=== PATIENT | female | born 1960 | race Caucasian/White ===

== ENCOUNTER → 2017-09-03 09:32 | Outpatient (CLI) | payer OTHER, SELFPAY ==
--- NOTE | 2017-09-03 09:33 | DI.RAD.S_ITS ---
PROCEDURE: XR LUMBAR SPINE 2-3V INDICATIONS: lumbago TECHNIQUE: 3 views of the lumbar spine were acquired. COMPARISON: [facility], CR, L-SPINE 2-3 VIEWS, 06/26/2013, 9:56. [facility], ALEJANDRINA, L/S-SPINE 2-3 VIEWS PAIN DEPT, 09/16/2013, 10:44. FINDINGS: Bones: 5 [id number] vertebrae are present. There is normal bony alignment. No vertebral body compression fractures. No suspicious bony lesions. Sclerosis is present around the narrowed L5-S1 disc. Soft tissues: Overlying bowel gas pattern is normal. Possible gallstone versus artifact right upper quadrant. IMPRESSION: 1. No acute bony abnormality. 2. Disc narrowing L5-S1 with reactive sclerosis of the adjoining endplates. Dictated by: Allen Soria M.D. on 09/03/2017 at 10:19 Approved by: Allen Soria M.D. on 09/03/2017 at 10:21
== END ==
PROVIDERS: Family Provider Family Medicine; PCP Family Medicine; Visit Provider Nurse Practitioner Family
DX: M54.5 Low back pain (principal); M51.37 Other intervertebral disc degeneration, lumbosacral region
CPT/HCPCS: 72100

== ENCOUNTER → 2017-10-18 07:53 | Outpatient (CLI) | payer OTHER, SELFPAY ==
--- NOTE | 2017-10-18 | DI.MG.S_ITS ---
BILATERAL DIGITAL SCREENING MAMMOGRAM 3D/2D WITH CAD: 10/18/2017 CLINICAL: Routine screening. Comparison is made to exams dated: 10/11/2016 mammogram, 08/31/2014 mammogram, and 05/26/2013 mammogram - [facility]. There are scattered fibroglandular elements in both breasts. Current study was also evaluated with a Computer Aided Detection (CAD) system. No significant masses, calcifications, or other findings are seen in either breast. There has been no significant interval change. IMPRESSION: NEGATIVE There is no mammographic evidence of malignancy. A 1 year screening mammogram is recommended. This exam was interpreted at Station ID: [id number]. NOTE: For mammograms, a report in lay terms will be sent to the patient. Approximately 15% of breast malignancies will not be visualized mammographically. In the management of a palpable breast mass, a negative mammogram must not discourage biopsy of a clinically suspicious lesion. Electronically Signed By: Anthony saucedo/eva:10/18/2017 12:42:15 letter sent: Normal Exam ACR BI-RADS Category 1: Negative [id number]
== END ==
PROVIDERS: Family Provider Family Medicine; PCP Family Medicine; Visit Provider Obstetrics & Gynecology
DX: Z12.31 Encounter for screening mammogram for malignant neoplasm of breast (principal)
CPT/HCPCS: 77063; 77067

== ENCOUNTER 2017-11-16 08:56 | Emergency (ER) | payer OTHER, SELFPAY ==
[2017-11-16] VITALS (7 sets, daily range): BP systolic 103–155; BP diastolic 62–95; PULSE 54–119; RESP 14–17; TEMP 36.8; O2SAT 94–98; BMI 33.9
--- NOTE | 2017-11-16 09:07 | DI.RAD.S_ITS ---
PROCEDURE: XR CHEST 1V INDICATIONS: chest pain TECHNIQUE: One view of the chest was acquired. COMPARISON: [facility], RG, XR CXR 1 VIEW, 09/15/2003, 10:52. [facility], RG, XR CXR 1 VIEW, 01/16/2005, 10:52. FINDINGS: Surgical changes and devices: None. Lungs and pleura: No pleural effusions or pneumothorax. Lungs are clear. Mediastinum: Mediastinal contours appear normal. Heart size is normal. Bones and chest wall: No suspicious bony lesions. Overlying soft tissues appear unremarkable. IMPRESSION: No acute cardiopulmonary disease. Dictated by: Gale Lawson M.D. on 11/16/2017 at 10:26 Approved by: Gale Lawson M.D. on 11/16/2017 at 10:27
[2017-11-16 09:22] LABS: Add Manual Diff / Slide Review NO; Basophils Percent Auto 1.2 % (0-2); Eosinophils Percent Auto 8.1 % (2-4); Hematocrit 37.4 % (36-46); Hemoglobin 12.6 g/dL (12.0-16.0); Mean Corpuscular HGB Conc 33.8 % (30-36); Mean Corpuscular Hemoglobin 30.4 PG (26-34); Mean Corpuscular Volume 89.9 fL (80-100); Monocytes Percent Auto 9.3 % (3-14); Neutrophils Absolute Auto 2800 /uL (3000-5900); Neutrophils Percent Auto 53.4 % (50-75); Platelet Count 213 X10^3/uL (150-400); Red Blood Cell Count 4.16 X10^6/uL (4.0-5.2); Red Cell Distribution Width 13.3 % (11.6-14.8); White Blood Cell Count 5.3 X10^3/uL (4.5-11.0)
[2017-11-16 09:30] LABS: INR 1.1 (0.9-1.3); Prothrombin Time 11.9 SECONDS (10.1-12.7)
[2017-11-16 09:33] LABS: PTT Partial Thromboplastin Tim 28 SECONDS (26.4-36.2)
[2017-11-16 09:43] LABS: Alanine Aminotransferase 57 IU/L (9-52); Albumin 4.5 g/dL (3.5-5.0); Albumin Globulin Ratio 1.9 (1.0-2.8); Alkaline Phosphatase 94 U/L (38-126); BUN Creatinine Ratio 21.4 (6-22); Bilirubin Total 0.8 mg/dL (0.2-1.3); Blood Urea Nitrogen 15 mg/dL (7-17); Calcium 9.8 mg/dL (8.4-10.2); Carbon Dioxide 30 mmol/L (22-32); Chloride 102 mmol/L (98-107); Creatine Kinase 57 U/L (30-135); Estimated Glomerular Filt Rate > 60.0 mL/min (>60); Globulin 2.4 g/dL (1.7-4.1); Glucose 103 mg/dL (70-100); Lipase 204 U/L (23-300); Sodium 142 mmol/L (137-145); Total Protein 6.9 g/dL (6.3-8.2)
[2017-11-16 09:59] LABS: HEMOLYSIS 67 (0-50); Potassium 4.6 mmol/L (3.4-5.1); Troponin I < 0.012 ng/mL (0.01-0.034)
[2017-11-16 10:00] LABS: Aspartate Aminotransferase 57 IU/L (14-36); Free T4, Direct Thyroxine 1.33 ng/dL (0.78-2.19)
[2017-11-16 10:04] LABS: D Dimer < 200 ng/mL (<230)
[2017-11-16 10:14] LABS: Thyroid Stimulating Hormone 0.58 uIU/mL (0.47-4.68)
[2017-11-16 12:14] LABS: Troponin I < 0.012 ng/mL (0.01-0.034)
--- NOTE | 2017-11-16 12:35 | ED.CHESTPAIN ---
HPI - Chest Pain General Chief Complaint: Chest Pain Stated Complaint: severe chest pain, has arrythimia, jaw hurts History of Present Illness HPI narrative: HPI 57-year-old obese female with a history of paroxysmal atrial fibrillation on metoprolol presents for evaluation after 20-30 second long brief period of substernal chest pain/tightness that radiated to his job and occurred while she was having bowel movement, pain resolved as quickly as it began in the patient has been asymptomatic since. Symptoms began 1 hour prior to arrival. Patient denies recent immobilization, leg trauma, estrogen use, surgery in the last four weeks, hemoptysis, or malignancy in the last 6 months. M/S/F/SocHx notable for: please see HPI; remainder reviewed with patient and in chart. ROS: Negative constitutional, eye, cardiovascular, pulmonary, GI, , MSK, skin, neurologic, psychiatric, endocrine unless noted in the HPI. Exam Gen: Pleasant, non-toxic appearing, resting comfortably. HEENT: NC, AT, PEERL, EOMI. Resp: Clear to auscultation bilaterally, normal work of breathing. Card: RRR with no M/R/G, no crackles in lung bases, no pedal edema, no JVD appreciated. GI: NT/ND Vascular: Both ankles, calves, and thighs of equal size, no calf tenderness to palpation bilaterally. MSK: No chest wall TTP. No visible deformities, strength and tone WNL. Skin: Normal color with no visible lesions. Neuro: AO x 3, no facial asymmetry, vision and hearing WNL. Psych: Mood and affect appropriate. Labs / Imaging (pertinent): WBC 5.3, Hb 12.6, Na 142, K 4.6, Mg 2.0, lipase 204, TSH 0.58, free T4 1.33. Troponin <0.012, troponin (repeat) <0.012 d-dimer <200 EKG: atrial fibrillation with ventricular rate of 103 bpm, nonspecific ST segment abnormalities, no LBBB. EKG (3 Lead cardiac monitor technician, 9:17 AM): SR at approximately 75 bpm, no ST segment elevations or depressions. Narrow QRS. CXR: No acute cardiopulmonary disease process. MDM Previous chart, nursing note, and vitals reviewed. A: 57-year-old obese female with a history of paroxysmal atrial fibrillation on metoprolol presents for evaluation after 20-30 second long brief period of substernal chest pain/tightness that radiated to his job and occurred while she was having bowel movement, pain resolved as quickly as it began in the patient has been asymptomatic since. DDx: ACS, unstable angina, pericarditis, myocarditis, dissection, PE, mediastinal air, pneumothorax, MSK, endocarditis, GI, arrhythmia. Evaluation: * ACS - doubt ACS given a non-ischemic EKG and negative serial troponins. * UA - unlikely given the atypical history and alternate diagnosis. HEART score 3 (Hx - 0, EKG - 1, age - 1, risk factors - 1, troponin - 0; 30 day MACE: less than or equal to 1.7%). * Pericarditis - consider pericarditis unlikely given the lack of MA segment depressions as well as the absence of diffuse ST-segment elevations, lack of reduction of pain when supine, and lack of a friction rub. * Myocarditis - unlikely given the negative troponin and an EKG without characteristic MA-segment or ST-segment changes. * Dissection - dissection is unlikely given symptoms, and lack of mediastinal widening, and low pretest probability with a negative d-dimer. * PE - low clinical suspicion, negative d-dimer. * Mediastinal Air - no evidence by CXR or auscultation. * Pneumothorax - no evidence by CXR or physical exam. * MSK - doubt given lack of reproducibility on exam. * Endocarditis - no identifiable risk factors, patient afebrile, no new murmurs appreciated on exam; doubt. * GI (Esophageal rupture, GERD) - esophageal rupture effectively excluded given the lack of mediastinal widening, non-toxic appearance, and lack of identifiable risk factors. While not definitively excluded, further evaluation of GERD is deferred to an outpatient setting. * Atrial fibrillation - patient re-demonstrates paroxysmal atrial fibrillation, discussion was had with the patient regarding anticoagulation versus deferring to repeat evaluation Saturday with PCP. Risks and benefits were reviewed, patient elected to pursue prompt outpatient follow-up her primary care physician to review possible anticoagulation needs. Impression: Chest Pain. (please reference below for remainder of encounter information) Related Data Previous Rx's Medication Instructions Recorded betamethasone dipropionate 1 sam TOPICAL QDAY #30 gm 09/12/16 atorvastatin [Lipitor] 40 mg PO HS #90 tab 03/21/17 escitalopram oxalate 40 mg PO QDAY #90 tab 03/21/17 lamotrigine [Lamictal] 0 PO QDAY #90 tab 03/21/17 levothyroxine 0.088 mg PO QAM #90 tab 03/21/17 metoprolol tartrate 50 mg PO BID #180 tab 03/21/17 cyclobenzaprine 5 mg tablet 5 mg PO BEDTIME #20 tab 09/03/17 estradiol [Estrace] 1 gm VAGINAL QDAY #30 gm 09/12/17 alprazolam 0.5 mg tablet 0.5 mg PO SEE INSTRUCTIONS PRN #30 11/08/17 tab fluticasone 0 INTRANASAL SEE INSTRUCTIONS #1 11/08/17 bot Allergies Allergy/AdvReac Type Severity Reaction Status Date / Time Sulfa (Sulfonamide Allergy Severe RASH, Unverified 09/03/17 08:52 Antibiotics) ANAPHYLAXIS buspirone Allergy Intermediate HIVES Unverified 09/03/17 08:52 cephalexin Allergy Intermediate HIVES Unverified 09/03/17 08:52 fluoxetine Allergy Intermediate HIVES Unverified 09/03/17 08:52 ketorolac Allergy Intermediate HIVES Unverified 09/03/17 08:52 levofloxacin Allergy Intermediate EYE Unverified 09/03/17 08:52 SWELLING metronidazole Allergy Intermediate HIVES Unverified 09/03/17 08:52 nitrofurantoin Allergy Intermediate HIVES Unverified 09/03/17 08:52 Quinolones Allergy Intermediate HIVES Unverified 09/03/17 08:52 sertraline Allergy Intermediate HIVES Unverified 09/03/17 08:52 tobramycin Allergy Intermediate HIVES Unverified 09/03/17 08:52 adhesive Allergy Mild RASH Unverified 09/03/17 08:52 ezetimibe Allergy Unknown Unverified 09/03/17 08:52 gentamicin [Gentamicin] Allergy Unknown Unverified 09/03/17 08:52 Penicillins Allergy Unknown Unverified 09/03/17 08:52 simvastatin Allergy Unknown Unverified 09/03/17 08:52 sulfamethoxazole Allergy Unknown Unverified 09/03/17 08:52 [From Bactrim] trimethoprim [From Bactrim] Allergy Unknown Unverified 09/03/17 08:52 epinephrine AdvReac Mild HEART Unverified 09/03/17 08:52 [facility] Surgical History Status post appendectomy Family History Father Heart disease Hypertension Mother Hypertension High cholesterol Social History Smoking Status: Never smoker Exam Initial Vital Signs Initial Vital Signs: Vital Signs Temperature 98.3 F 11/16/17 09:19 Pulse Rate 119 H 11/16/17 09:19 Respiratory Rate 17 11/16/17 09:19 Blood Pressure 155/95 H 11/16/17 09:19 Pulse Oximetry 96 11/16/17 09:19 Course Orders Ordered: ED Orders 11/16/17 09:07 XR chest 1V Stat EKG-12 Lead Stat 11/16/17 09:10 Complete Blood Count AUTO DIFF Stat Comprehensive Metabolic Panel Stat D Dimer Stat Free T4 Free Thyroxine Stat Lipase Stat Magnesium Stat Partial Thromboplastin Time Stat Prothrombin Time INR Stat Thyroid Stimulating Hormone Stat Troponin & CK Cardiac Panel Stat 11/16/17 11:25 Troponin I Stat Vital Signs - 8 hr 11/16/17 09:19 11/16/17 09:30 11/16/17 10:00 Temperature 98.3 F Pulse Rate 119 H 62 55 L Respiratory Rate 17 16 14 Blood Pressure 155/95 H Blood Pressure [Right Arm] 121/72 H 121/75 H Pulse Oximetry 96 98 94 11/16/17 10:38 11/16/17 11:13 11/16/17 12:04 Temperature Pulse Rate 54 L 59 L Respiratory Rate 17 16 Blood Pressure Blood Pressure [Right Arm] 108/68 103/62 113/66 Pulse Oximetry 95 95 MDM - Chest Pain Lab Data Result diagrams: 11/16/17 09:10 11/16/17 09:10 Lab Results 11/16/17 11/16/17 11/16/17 Range/Units 09:10 09:10 09:10 WBC 5.3 (4.5-11.0) X10^3/uL RBC 4.16 (4.0-5.2) X10^6/uL Hgb 12.6 (12.0-16.0) g/dL Hct 37.4 (36-46) % MCV 89.9 (80-100) fL MCH 30.4 (26-34) PG MCHC 33.8 (30-36) % RDW 13.3 (11.6-14.8) % Plt Count 213 (150-400) X10^3/uL Neut % (Auto) 53.4 (50-75) % Lymph % (Auto) 28.0 (25-40) % Murray % (Auto) 9.3 (3-14) % Eos % (Auto) 8.1 H (2-4) % Baso % (Auto) 1.2 (0-2) % Neut # (Auto) 2800 L (1592-5579) /uL PT 11.9 (10.1-12.7) SECONDS INR 1.1 (0.9-1.3) APTT 28 (26.4-36.2) SECONDS D-Dimer (<230) ng/mL Sodium 142 (137-145) mmol/L Potassium 4.6 (3.4-5.1) mmol/L Chloride 102 (98-107) mmol/L Carbon Dioxide 30 (22-32) mmol/L BUN 15 (7-17) mg/dL Creatinine 0.70 (0.52-1.04) mg/dL Estimated GFR > 60.0 (>60) mL/min BUN/Creatinine Ratio 21.4 (6-22) Glucose 103 H (70-100) mg/dL Calcium 9.8 (8.4-10.2) mg/dL Magnesium (1.6-2.3) mg/dL Total Bilirubin 0.8 (0.2-1.3) mg/dL AST 57 H (14-36) IU/L ALT 57 H (9-52) IU/L Alkaline Phosphatase 94 (38-126) U/L Total Creatine Kinase 57 (30-135) U/L Troponin I < 0.012 (0.01-0.034) ng/mL Total Protein 6.9 (6.3-8.2) g/dL Albumin 4.5 (3.5-5.0) g/dL Globulin 2.4 (1.7-4.1) g/dL Albumin/Globulin Ratio 1.9 (1.0-2.8) Lipase 204 (23-300) U/L TSH (0.47-4.68) uIU/mL Free T4 (0.78-2.19) ng/dL 11/16/17 11/16/17 11/16/17 Range/Units 09:10 09:10 09:10 WBC (4.5-11.0) X10^3/uL RBC (4.0-5.2) X10^6/uL Hgb (12.0-16.0) g/dL Hct (36-46) % MCV (80-100) fL MCH (26-34) PG MCHC (30-36) % RDW (11.6-14.8) % Plt Count (150-400) X10^3/uL Neut % (Auto) (50-75) % Lymph % (Auto) (25-40) % Murray % (Auto) (3-14) % Eos % (Auto) (2-4) % Baso % (Auto) (0-2) % Neut # (Auto) (3726-9882) /uL PT (10.1-12.7) SECONDS INR (0.9-1.3) APTT (26.4-36.2) SECONDS D-Dimer < 200 (<230) ng/mL Sodium (137-145) mmol/L Potassium (3.4-5.1) mmol/L Chloride (98-107) mmol/L Carbon Dioxide (22-32) mmol/L BUN (7-17) mg/dL Creatinine (0.52-1.04) mg/dL Estimated GFR (>60) mL/min BUN/Creatinine Ratio (6-22) Glucose (70-100) mg/dL Calcium (8.4-10.2) mg/dL Magnesium 2.0 (1.6-2.3) mg/dL Total Bilirubin (0.2-1.3) mg/dL AST (14-36) IU/L ALT (9-52) IU/L Alkaline Phosphatase (38-126) U/L Total Creatine Kinase (30-135) U/L Troponin I (0.01-0.034) ng/mL Total Protein (6.3-8.2) g/dL Albumin (3.5-5.0) g/dL Globulin (1.7-4.1) g/dL Albumin/Globulin Ratio (1.0-2.8) Lipase (23-300) U/L TSH 0.58 (0.47-4.68) uIU/mL Free T4 1.33 (0.78-2.19) ng/dL 11/16/17 Range/Units 11:25 WBC (4.5-11.0) X10^3/uL RBC (4.0-5.2) X10^6/uL Hgb (12.0-16.0) g/dL Hct (36-46) % MCV (80-100) fL MCH (26-34) PG MCHC (30-36) % RDW (11.6-14.8) % Plt Count (150-400) X10^3/uL Neut % (Auto) (50-75) % Lymph % (Auto) (25-40) % Murray % (Auto) (3-14) % Eos % (Auto) (2-4) % Baso % (Auto) (0-2) % Neut # (Auto) (6632-3742) /uL PT (10.1-12.7) SECONDS INR (0.9-1.3) APTT (26.4-36.2) SECONDS D-Dimer (<230) ng/mL Sodium (137-145) mmol/L Potassium (3.4-5.1) mmol/L Chloride (98-107) mmol/L Carbon Dioxide (22-32) mmol/L BUN (7-17) mg/dL Creatinine (0.52-1.04) mg/dL Estimated GFR (>60) mL/min BUN/Creatinine Ratio (6-22) Glucose (70-100) mg/dL Calcium (8.4-10.2) mg/dL Magnesium (1.6-2.3) mg/dL Total Bilirubin (0.2-1.3) mg/dL AST (14-36) IU/L ALT (9-52) IU/L Alkaline Phosphatase (38-126) U/L Total Creatine Kinase (30-135) U/L Troponin I < 0.012 (0.01-0.034) ng/mL Total Protein (6.3-8.2) g/dL Albumin (3.5-5.0) g/dL Globulin (1.7-4.1) g/dL Albumin/Globulin Ratio (1.0-2.8) Lipase (23-300) U/L TSH (0.47-4.68) uIU/mL Free T4 (0.78-2.19) ng/dL Discharge Plan Departure Prescriptions: No Action betamethasone dipropionate 0.05 % cream 1 sam Topical QDAY Qty: 30 RF: 0 atorvastatin [Lipitor] 40 MG tablet 40 mg PO HS Qty: 90 RF: 3 lamotrigine [Lamictal] 200 MG tablet PO QDAY Qty: 90 RF: 3 levothyroxine 88 MCG tablet 0.088 mg PO QAM Qty: 90 RF: 3 metoprolol tartrate 50 MG tablet 50 mg PO BID Qty: 180 RF: 3 escitalopram oxalate 20 MG tablet 40 mg PO QDAY Qty: 90 RF: 3 estradiol [Estrace] 0.01 % (0.1 mg/gram) cream 1 gm Vaginal QDAY Qty: 30 RF: 3 fluticasone 50 mcg/actuation spray,suspension Intranasal SEE INSTRUCTIONS Qty: 1 RF: 4 alprazolam 0.5 mg tablet 0.5 mg PO SEE INSTRUCTIONS PRN (Reason: anxiety) Qty: 30 RF: 0 cyclobenzaprine 5 mg tablet 5 mg PO BEDTIME Qty: 20 RF: 0
== END 2017-11-16 12:47 | disposition home or self-care (01) ==
PROVIDERS: Emergency Provider Emergency Medicine; PCP Family Medicine
DX: R07.9 Chest pain, unspecified (principal)
CPT/HCPCS: 36415; 36591; 71045; 80053; 82550; 82553; 83690; 83735; 84439; 84443; 84484; 85025; 85379; 85610; 85730; 93005; 93010; 99283; 99285

== ENCOUNTER → 2017-11-26 13:29 | Outpatient (CLI) | payer OTHER, SELFPAY ==
--- NOTE | 2017-12-18 08:18 | P.HOLT.S_ITS ---
[employer] Report Referral & Results Date Patient Seen: 11/26/17 Requesting provider: Angel Love Indication: AFib Duration of monitoring (days): 12 Diary information: Patient had no diary entries entered There were 119 patient triggered events including episodes of atrial fibrillation sinus rhythm PACs and PVCs Data: Patient's minimum heart rate was 44 beats per minute at 05:56 on 2017 Maximum sinus heart rate was 119 beats per minute at 01:08 on 12/03/2017 Maximum overall heart rate was 170 beats per minute at 20:40 on 12/02/2017 during an episode of atrial fibrillation Less than 1% of identified beats or either ventricular or supraventricular ectopic in origin Predominant underlying rhythm was sinus rhythm. However 18% of the time patient was in atrial fibrillation with heart rates ranging from 64-178 with the longest episode lasting 22 hr 36 min, with an average rate of 98 beats per minute during this time Impression: Patient with episodic paroxysmal atrial fibrillation as above including an episode that lasted in excess of 22 hr Clinical correlation suggested
== END ==
PROVIDERS: PCP Family Medicine; Visit Provider Family Medicine
DX: R07.9 Chest pain, unspecified (principal); I48.0 Paroxysmal atrial fibrillation
CPT/HCPCS: 0296T; 0298T

== ENCOUNTER → 2017-11-29 08:14 | Outpatient (CLI) | payer OTHER, SELFPAY ==
--- NOTE | 2017-11-29 08:16 | DI.ECHO.S_ITS ---
[facility]---------+ [facility] +---------+ : : [address] : : : : [id number] : : : : Phone: [phone] Echocardiogram Report + + :Name: ARIA ANDRES Study Date: 11/29/2017 Height: 66 in : :[facility] Exam Location: [facility] Weight: 205 lb : : Gender: Female BSA: 2.0 m2 : :: 1960 Age: 57 yrs BP: 110/80 mmHg: :Reason For Study: Chest pain/ AFib : :Ordering Physician: Dr. Ortiz : :Ivan Performed By: Christa Page : :Referring: JOHANNA TORRES : + + Interpretation Summary The ejection fraction is estimated to be 60-65%. There is mild mitral regurgitation. There is trace tricuspid regurgitation. The right ventricular systolic pressure is estimated at 27 mmHg assuming a right atrial pressure of 3 mm Hg. Procedure: A two-dimensional transthoracic echocardiogram with color flow and Doppler was performed. The study quality was technically adequate. Prior with images only from 09/24/2003. The patient was in normal sinus rhythm during the exam. Left Ventricle: The left ventricle is normal in size, wall thickness, and systolic function without any focal wall motion abnormalities. The ejection fraction is estimated to be 60-65%. Assessment of diastolic parameters indicates normal left ventricular diastolic function and normal filling pressures. Right Ventricle: The right ventricle is normal in size and function. Atria: The left atrium is mildly dilated. The right atrium is borderline dilated. There is no Doppler evidence for an interatrial shunt. Mitral Valve: The mitral valve is normal in structure and function. There is mild mitral regurgitation. Aortic Valve: The aortic valve is trileaflet. The aortic valve opens well. No aortic regurgitation is present. Tricuspid Valve: The tricuspid valve is normal in structure and function. There is trace tricuspid regurgitation. The right ventricular systolic pressure is estimated at 27 mmHg assuming a right atrial pressure of 3 mm Hg. Pulmonic Valve: The pulmonic valve is not well seen, but is grossly normal. There is trace pulmonic regurgitation. Great Vessels: The aortic root is normal size. The ascending aorta is normal in size. The aortic arch is normal in size. The pulmonary artery is not well visualized, but is probably normal size. The IVC is of normal diameter and collapses greater than 50% with a sniff. This suggests a low right atrial pressure of 3 mm Hg. Pericardium/ Pleura There is no pericardial effusion. There is no pleural effusion. MMode/2D Measurements & Calculations LVIDd: 5.2 cm LVOT diam: 1.9 cm LVIDs: 3.6 cm Ao root diam: 2.6 cm FS: 31.8 % asc Aorta Diam: 2.8 cm EPSS: 0.45 cm Ao Arch Diam (Prox Trans): 2.5 cm IVSd: 0.76 cm LVPWd: 0.84 cm LV dominguez. diameter/BSA (cm/m^2): 2.6 LV sys. diameter/BSA (cm/m^2): 1.8 LA A2 area: 25.7 cm2 RA long axis: 5.2 cm LA A4 area: 24.1 cm2 RA area: 19.7 cm2 LA length (vol): 6.4 cm RA vol: 64.2 ml LA vol: 82.1 ml RA : 31.8 ml/m2 LA vol index: 40.6 ml/m2 IVC diam: 1.7 cm RVD1 (basal): 3.8 cm TAPSE: 2.0 cm Doppler Measurements & Calculations Ao V2 max: 132.3 cm/sec LVOT Max Shane: 106.8 cm/sec Ao V2 mean: 91.0 cm/sec LV V1 max P.6 mmHg Ao max P.0 mmHg LV V1 VTI: 23.4 cm Ao mean P.7 mmHg NELLIE(I,D): 2.3 cm2 Ao V2 VTI: 29.8 cm NELLIE(V,D): 2.4 cm2 sev ratio: 0.79 NELLIE indexed to BSA (cm^2/m^2): 1.1 MV E max shane: 74.1 cm/sec TR max shane: 247.0 cm/sec MV A max shane: 34.0 cm/sec TR max P.4 mmHg MV E/A: 2.2 PA V2 max: 76.0 cm/sec Med Peak E' Shane: 6.8 cm/sec PA V2 mean: 54.5 cm/sec E/E' med: 10.9 PA mean P.3 mmHg Lat Peak E' Shane: 8.2 cm/sec PA Accel Time: 0.17 sec E/E' lat: 9.1 E/e' average: 10.0 MV dec time: 0.23 sec MV P1/2t: 69.4 msec MV P1/2t max shane: 73.7 cm/sec MVA(P1/2t): 3.2 cm2 Reading Physician:04:12 PM
== END ==
PROVIDERS: PCP Family Medicine; Visit Provider Family Medicine
DX: I34.0 Nonrheumatic mitral (valve) insufficiency (principal); I48.91 Unspecified atrial fibrillation; R07.9 Chest pain, unspecified
CPT/HCPCS: 93306

== ENCOUNTER 2018-11-07 19:42 | Emergency (ER) | payer OTHER, SELFPAY ==
[2018-11-07] VITALS (15 sets, daily range): BP systolic 111–139; BP diastolic 62–86; PULSE 79–141; RESP 12–18; TEMP 37.5; O2SAT 95–99
--- NOTE | 2018-11-07 19:48 | ED.ARRPALP ---
HPI - Arrhythmia/Palpitations General Chief Complaint: Arrhythmia/Palpitations Stated Complaint: Rapid A-Fib Time Seen by Provider: 11/07/18 19:43 Source: patient and family Mode of arrival: ambulatory Limitations: no limitations History of Present Illness HPI narrative: 58-year-old female nonsmoker with history of paroxysmal atrial fibrillation on Pradaxa presents with a chief complaint of palpitations, rapid heart rate and left anterior chest pain with radiation to her left arm over the past day or 2. 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 She her home monitor noted to be in the 130s 140s but she did not believe its accuracy. About 1-2 weeks ago the patient had slipped and fallen on her left hip and it causes her pain with active range of motion. She denies any numbness, tingling or weakness. She denies any knee or ankle pain. She went to the walk-in clinic for evaluation of this left hip pain but during their evaluation they found her to be in a rapid atrial fibrillation at which point she was sent here MD complaint: rapid heart beat, palpitations and atrial fibrillation Duration: constant Severity: moderate Arrhythmia history: atrial fibrillation Associated symptoms: chest pain and shortness of breath Related Data Previous Rx's Medication Instructions Recorded betamethasone dipropionate 1 sam TOPICAL QDAY #30 gm 09/12/16 cyclobenzaprine 5 mg tablet 5 mg PO BEDTIME #20 tab 09/03/17 dabigatran etexilate 150 mg capsule 150 mg PO BID #60 cap 12/30/17 escitalopram 20 mg tablet 40 mg PO QDAY #180 tab 01/22/18 levothyroxine 0.088 mg PO QAM #90 tab 01/22/18 metoprolol tartrate 50 mg tablet 25 mg PO BID #90 tab 03/13/18 atorvastatin [Lipitor] 40 mg PO HS #90 tab 07/10/18 fluticasone propionate 0 INTRANASAL SEE INSTRUCTIONS #1 07/10/18 bot lamotrigine [Lamictal] 0 PO QDAY #90 tab 07/10/18 estradiol [Estrace] 1 gm VAGINAL QDAY #30 gm 09/22/18 alprazolam 0.5 mg tablet 0.5 mg PO SEE INSTRUCTIONS PRN #30 10/09/18 tab Allergies Allergy/AdvReac Type Severity Reaction Status Date / Time Sulfa (Sulfonamide Allergy Severe RASH, Verified 11/07/18 20:00 Antibiotics) ANAPHYLAXIS buspirone Allergy Intermediate HIVES Verified 11/07/18 20:00 cephalexin Allergy Intermediate HIVES Verified 11/07/18 20:00 fluoxetine Allergy Intermediate HIVES Verified 11/07/18 20:00 ketorolac Allergy Intermediate HIVES Verified 11/07/18 20:00 levofloxacin Allergy Intermediate EYE Verified 11/07/18 20:00 SWELLING metronidazole Allergy Intermediate HIVES Verified 11/07/18 20:00 nitrofurantoin Allergy Intermediate HIVES Verified 11/07/18 20:00 Quinolones Allergy Intermediate HIVES Verified 11/07/18 20:00 sertraline Allergy Intermediate HIVES Verified 11/07/18 20:00 tobramycin Allergy Intermediate HIVES Verified 11/07/18 20:00 adhesive Allergy Mild RASH Verified 11/07/18 20:00 ezetimibe Allergy Unknown Verified 11/07/18 20:00 gentamicin [Gentamicin] Allergy Unknown Verified 11/07/18 20:00 Penicillins Allergy Unknown Verified 11/07/18 20:00 simvastatin Allergy Unknown Verified 11/07/18 20:00 sulfamethoxazole Allergy Unknown Verified 11/07/18 20:00 [From Bactrim] trimethoprim [From Bactrim] Allergy Unknown Verified 11/07/18 20:00 epinephrine AdvReac Mild HEART Verified 11/07/18 20:00 RACING Review of Systems Constitutional Denies chills, Denies fever(s), Denies lethargy and Denies weakness Eyes Denies change in vision, Denies eye discharge, Denies irritation and Denies loss of vision ENT Ears, Nose, Mouth, and Throat: Denies change in voice, Denies neck pain and Denies sore throat Cardiovascular Reports chest pain, Reports irregular heart rhythm, Denies lightheadedness, Reports palpitations, Reports dyspnea, Denies dyspnea on exertion and Denies orthopnea Respiratory Denies cough, Reports dyspnea, Denies dyspnea on exertion and Denies wheezing Gastrointestinal Gastrointestinal: Denies abdominal pain, Denies change in bowel habits, Denies diarrhea, Denies nausea and Denies vomiting Genitourinary Denies hematuria, Denies flank pain, Denies urinary incontinence and Denies urinary urgency Musculoskeletal Reports limited range of motion and Denies neck pain Integumentary/Breasts Denies pruritus, Denies erythema, Denies rash and Denies wounds Neurologic Denies confusion, Denies loss of vision and Denies weakness Psychiatric Denies anxiety, Denies confusion, Denies depression, Denies homicidal ideation and Denies suicidal ideation Endocrine Reports palpitations Hematologic/Lymphatic Denies easy bruising Allergic/Immunologic Denies wheezing [facility] Medical History Asthma (Chronic) Cardiac arrhythmia (Chronic) Chronic back pain (Chronic) Depression (Chronic) Hayfever (Chronic) Hypothyroidism (Chronic) Chicken pox (Resolved) Mumps (Resolved) Surgical History Anesthesia (Resolved) History of gynecologic surgery (Resolved 07/2014) Status post appendectomy (Resolved ~1999) Family History Father Heart disease Hypertension Congestive heart failure Mother Hypertension High cholesterol Son Chronic mental illness Social History marital status: Smoking Status: Never smoker alcohol intake: never substance use type: does not use Family History Father Heart disease Hypertension Congestive heart failure Mother Hypertension High cholesterol Son Chronic mental illness Social History marital status: Smoking Status: Never smoker alcohol intake: never substance use type: does not use Exam Narrative Exam Narrative: GENERAL: 58-year-old female appears stated age, in obvious distress, obviously anxious HEAD: Atraumatic. Normocephalic. No temporal or scalp tenderness. EYES: Pupils equal round and reactive. Extraocular motions intact. No scleral icterus. No injection or drainage. ENT: Nose without bleeding, purulent drainage or septal hematoma. Throat without erythema, tonsillar hypertrophy or exudate. Uvula midline. Airway patent. NECK: Trachea midline. No JVD or lymphadenopathy. Supple, nontender, no meningeal signs. CARDIOVASCULAR: Tachycardic and irregular, no murmurs clicks rubs or gallops RESPIRATORY: Clear to auscultation. Breath sounds equal bilaterally. No wheezes, rales, or rhonchi. GASTROINTESTINAL: Abdomen soft, non-tender, nondistended. No hepato-splenomegaly, or palpable masses. No guarding. EXTREMITIES: No pain on palpation of left hip. Range of motion actively creates pain along the anterior aspect of the hip. No pain with passive range of motion or axial loading BACK: Nontender without deformity or crepitance. No flank tenderness. NEURO: AOx3. SKIN: No rash or erythema. Initial Vital Signs Initial Vital Signs: Vital Signs Temperature 99.5 F 11/07/18 19:48 Pulse Rate 141 H 11/07/18 19:48 Respiratory Rate 14 11/07/18 19:48 Blood Pressure 139/71 11/07/18 19:48 Pulse Oximetry 95 11/07/18 19:48 Procedures Cardioversion Consent Signed: Yes Indication: rapid atrial fib / atrial flutter Stability: Stable Number of attempts (shocks): 1 Joules used: 50 Cardiac rhythm post-cardioversion: NSR Procedural Sedation Patient Age: Patient is 5yrs or older Consent signed: Yes Time out performed: Yes Indication: cardioversion ASA Class: II Mallampati Airway Classification: Class II Preparation: cardiac cath lab technologist applied, pulse oximeter, capnometry used, supplemental O2 applied, suction/airway equipment at bedside and IV secured IV Propofol dose (mg): 60 Intraservice time/total sedation time (min): 10 ED Sedation Level: Moderate (Concious) Patient Tolerated Procedure: Well Complications: none Course Orders Ordered: ED Orders 11/07/18 19:48 XR chest 1V Stat EKG-12 Lead Stat 11/07/18 19:52 Basic Metabolic Panel Stat Complete Blood Count AUTO DIFF Stat Magnesium Stat Thyroid Stimulating Hormone Stat Troponin & CK Cardiac Panel Stat 11/07/18 20:01 D Dimer Stat 11/07/18 20:35 XR hip w pel if done LT 2V Stat Discontinued Medications Diltiazem HCl (Cardizem) 10 mg IV NOW ONE Stop: 11/07/18 19:48 Last Admin: 11/07/18 20:16 Dose: 10 mg Sodium Chloride (Normal Saline 0.9%) 1,000 mls @ 150 mls/hr IV CONT RYLAN Last Infusion: 11/07/18 23:25 Dose: 0 mls/hr Admin: 11/07/18 20:17 Dose: 150 mls/hr Propofol (Diprivan) 60 mg IV NOW ONE Stop: 11/07/18 23:00 Last Admin: 11/07/18 22:22 Dose: 60 mg Vital Signs - 8 hr 11/07/18 20:16 11/07/18 20:30 11/07/18 20:45 Pulse Rate 137 H 133 H 124 H Respiratory Rate 18 Blood Pressure 128/74 Blood Pressure [Left Arm] Pulse Oximetry 95 11/07/18 21:00 11/07/18 21:45 11/07/18 22:08 Pulse Rate 123 H 116 H 119 H Respiratory Rate 16 18 Blood Pressure Blood Pressure [Left Arm] 135/86 135/73 Pulse Oximetry 95 96 99 11/07/18 22:25 11/07/18 22:30 11/07/18 22:35 Pulse Rate 85 83 84 Respiratory Rate 12 12 14 Blood Pressure Blood Pressure [Left Arm] 111/62 116/68 116/64 Pulse Oximetry 99 99 97 11/07/18 22:40 11/07/18 22:45 11/07/18 22:50 Pulse Rate 82 79 82 Respiratory Rate 12 14 16 Blood Pressure Blood Pressure [Left Arm] 116/70 118/63 115/66 Pulse Oximetry 98 97 98 11/07/18 22:55 11/07/18 23:30 Pulse Rate 79 83 Respiratory Rate 17 18 Blood Pressure 118/68 Blood Pressure [Left Arm] 116/68 Pulse Oximetry 97 97 MDM - Arrhythmia/Palpitations Lab Data Result diagrams: 11/07/18 19:52 11/07/18 19:52 Lab Results 11/07/18 11/07/18 11/07/18 Range/Units 19:52 19:52 19:52 WBC 5.7 (4.5-11.0) X10^3/uL RBC 3.96 L (4.0-5.2) X10^6/uL Hgb 12.1 (12.0-16.0) g/dL Hct 35.1 L (36-46) % MCV 88.5 (80-100) fL MCH 30.5 (26-34) PG MCHC 34.5 (30-36) % RDW 13.9 (11.6-14.8) % Plt Count 272 (150-400) X10^3/uL Neut % (Auto) 68.9 (50-75) % Lymph % (Auto) 14.3 L (25-40) % [place] % (Auto) 9.8 (3-14) % Eos % (Auto) 5.7 H (2-4) % Baso % (Auto) 1.3 (0-2) % Neut # (Auto) 3900 (3454-7941) /uL Lymph # (Auto) 800 L (1414-6777) /uL [place] # (Auto) 600 (0-900) /uL Eos # (Auto) 300 (0-450) /uL Baso # (Auto) 100 (0-100) /uL D-Dimer (<230) ng/mL Sodium 140 (137-145) mmol/L Potassium 3.8 (3.4-5.1) mmol/L Chloride 100 (98-107) mmol/L Carbon Dioxide 29 (22-32) mmol/L BUN 17 (7-17) mg/dL Creatinine 0.70 (0.52-1.04) mg/dL Estimated GFR > 60.0 (>60) mL/min BUN/Creatinine Ratio 24.3 H (6-22) Glucose 132 H (70-100) mg/dL Calcium 9.6 (8.4-10.2) mg/dL Magnesium 2.1 (1.6-2.3) mg/dL Total Creatine Kinase 36 (30-135) U/L CK-MB (CK-2) TNP CK-MB (CK-2) Rel Index TNP Troponin I < 0.012 (0.01-0.034) ng/mL TSH 1.27 (0.47-4.68) uIU/mL 11/07/18 Range/Units 20:01 WBC (4.5-11.0) X10^3/uL RBC (4.0-5.2) X10^6/uL Hgb (12.0-16.0) g/dL Hct (36-46) % MCV (80-100) fL MCH (26-34) PG MCHC (30-36) % RDW (11.6-14.8) % Plt Count (150-400) X10^3/uL Neut % (Auto) (50-75) % Lymph % (Auto) (25-40) % [place] % (Auto) (3-14) % Eos % (Auto) (2-4) % Baso % (Auto) (0-2) % Neut # (Auto) (2201-9453) /uL Lymph # (Auto) (1639-6820) /uL [place] # (Auto) (0-900) /uL Eos # (Auto) (0-450) /uL Baso # (Auto) (0-100) /uL D-Dimer 306 H (<230) ng/mL Sodium (137-145) mmol/L Potassium (3.4-5.1) mmol/L Chloride (98-107) mmol/L Carbon Dioxide (22-32) mmol/L BUN (7-17) mg/dL Creatinine (0.52-1.04) mg/dL Estimated GFR (>60) mL/min BUN/Creatinine Ratio (6-22) Glucose (70-100) mg/dL Calcium (8.4-10.2) mg/dL Magnesium (1.6-2.3) mg/dL Total Creatine Kinase (30-135) U/L CK-MB (CK-2) CK-MB (CK-2) Rel Index Troponin I (0.01-0.034) ng/mL TSH (0.47-4.68) uIU/mL Point of Care Testing Test Results Not applicable Imaging Data Pelvis / Hip: Radiologist's impression: Thalia Maoboris Virgen 58 F 1960 [place] [address] XRay Report Signed Patient: Paulette Mao TMR#: [id number] : 1960Acct:[id number] Age/Sex: 58 / FDate of Service: 11/07/18 Loc: ED Accession Number: [id number] Procedure: XR hip w pel if done LT 2V Ordering Provider: Price Sunshine D.O. PROCEDURE: XR HIP W PEL IF DONE LT 2V INDICATIONS: fall with hip pain TECHNIQUE: AP pelvis with lateral view of the left hip. COMPARISON: [facility], MR, PELVIS WITHOUT CONTRAST, 07/08/2013, 18:37. [facility], CR, SACROILIAC JOINTS 3 OR MORE VW, 07/17/2013, 9:17. FINDINGS: Bones: No fractures or dislocations. Pelvic ring appears intact. The hip joint spaces appear preserved. There is mild degeneration of the sacroiliac joints bilaterally. No suspicious bony lesions. Soft tissues: The visualized bowel gas pattern is normal. No suspicious soft tissue calcifications. IMPRESSION: 1. No fracture or dislocation. Dictated by: Raphael Delgado M.D. on 11/07/2018 at 21:06 Chest x-ray: Radiologist's impression: PROCEDURE: XR CHEST 1V INDICATIONS: chest pain, tachy TECHNIQUE: One view of the chest was acquired. COMPARISON: [facility], RG, XR CXR 1 VIEW, 01/16/2005, 10:52. [facility], CR, XR CHEST 1V, 11/16/2017, 9:15. FINDINGS: Surgical changes and devices: None. Lungs and pleura: No acute consolidation. There is a round nodular opacity projecting over the right upper lung zone measuring up to 7 mm. No pleural effusions or pneumothorax. Mediastinum: Mediastinal contours appear normal. Heart size is normal. Bones and chest wall: No suspicious bony lesions. Overlying soft tissues appear unremarkable. IMPRESSION: 1. No acute consolidation. 2. Nodular opacity of the right upper lung zone is new compared to the prior studies. The findings are suspicious for a pulmonary nodule due to infection/inflammation versus neoplasm. Further evaluation is recommended with chest CT if clinically indicated. Dictated by: Raphael Delgado M.D. on 11/07/2018 at 21:03 Discharge Plan Departure Patient Disposition: Home Clinical Impression: Atrial fibrillation Qualifiers: Atrial fibrillation type: paroxysmal Qualified Code(s): I48.0 - Paroxysmal atrial fibrillation Discharge Date/Time: 11/07/18 23:30 Interventions: ED Discharge Assessment Last Done: 11/07/18 23:30 Instructions: DI for Atrial Fibrillation Activity Restrictions/Additional Instructions: *You have been diagnosed with [rapid atrial fibrillation, resolved with electrocardioversion] *What to do: *Take medications as directed *Follow up with your primary care provider in 2-3 days, call for an appointment. Let them know you were seen in the Emergency Department and that we ask that you be seen in follow up *Return to ER if you should have any new, worsening or concerning symptoms *Your chest Xray shows a small spot which will need to be followed by your PCP with a repeat Xray or more advanced imaging such as a CT Prescriptions: No Action betamethasone dipropionate 0.05 % cream 1 sam Topical QDAY Qty: 30 RF: 0 dabigatran etexilate [Pradaxa] 150 mg capsule 150 mg PO BID Qty: 60 RF: 11 levothyroxine 88 mcg tablet 0.088 mg PO QAM Qty: 90 RF: 3 escitalopram oxalate 20 mg tablet 40 mg PO QDAY Qty: 180 RF: 3 metoprolol tartrate 50 mg tablet 25 mg PO BID Qty: 90 RF: 3 atorvastatin [Lipitor] 40 mg tablet 40 mg PO HS Qty: 90 RF: 1 fluticasone propionate 50 mcg/actuation spray,suspension Intranasal SEE INSTRUCTIONS Qty: 1 RF: 2 lamotrigine [Lamictal] 200 mg tablet PO QDAY Qty: 90 RF: 1 estradiol [Estrace] 0.01 % (0.1 mg/gram) cream 1 gm Vaginal QDAY Qty: 30 RF: 3 alprazolam 0.5 mg tablet 0.5 mg PO SEE INSTRUCTIONS PRN (Reason: anxiety) Qty: 30 RF: 0 cyclobenzaprine 5 mg tablet 5 mg PO BEDTIME Qty: 20 RF: 0 Referrals: Angel Love MD [Primary Care Provider] - Boyd Arredondo MD [Physician] -
[2018-11-07 19:57] LABS: Add Manual Diff / Slide Review NO; Basophils Absolute Auto 100 /uL (0-100); Basophils Percent Auto 1.3 % (0-2); Eosinophils Absolute Auto 300 /uL (0-450); Eosinophils Percent Auto 5.7 % (2-4); Hematocrit 35.1 % (36-46); Hemoglobin 12.1 g/dL (12.0-16.0); Lymphocytes Absolute Auto 800 /uL (1100-4500); Lymphocytes Percent Auto 14.3 % (25-40); Mean Corpuscular HGB Conc 34.5 % (30-36); Mean Corpuscular Hemoglobin 30.5 PG (26-34); Mean Corpuscular Volume 88.5 fL (80-100); Monocytes Absolute Auto 600 /uL (0-900); Monocytes Percent Auto 9.8 % (3-14); Neutrophils Absolute Auto 3900 /uL (1500-7000); Neutrophils Percent Auto 68.9 % (50-75); Platelet Count 272 X10^3/uL (150-400); Red Blood Cell Count 3.96 X10^6/uL (4.0-5.2); Red Cell Distribution Width 13.9 % (11.6-14.8); White Blood Cell Count 5.7 X10^3/uL (4.5-11.0)
[2018-11-07 20:08] LABS: D Dimer 306 ng/mL (<230)
[2018-11-07 20:10] LABS: BUN Creatinine Ratio 24.3 (6-22); Blood Urea Nitrogen 17 mg/dL (7-17); Calcium 9.6 mg/dL (8.4-10.2); Carbon Dioxide 29 mmol/L (22-32); Chloride 100 mmol/L (98-107); Creatine Kinase 36 U/L (30-135); Estimated Glomerular Filt Rate > 60.0 mL/min (>60); Glucose 132 mg/dL (70-100); HEMOLYSIS < 15 (0-50); Magnesium 2.1 mg/dL (1.6-2.3); Potassium 3.8 mmol/L (3.4-5.1); Sodium 140 mmol/L (137-145)
[2018-11-07] MEDS: dilTIAZem 5 MG/ML SDV 10 MG IV (20:16)
[2018-11-07] MEDS: SODIUM CHLORIDE 0.9% 1,000 ML 150 ML IV (20:17)
[2018-11-07 20:21] LABS: Troponin I < 0.012 ng/mL (0.01-0.034)
--- NOTE | 2018-11-07 20:35 | DI.RAD.S_ITS ---
PROCEDURE: XR HIP W PEL IF DONE LT 2V INDICATIONS: fall with hip pain TECHNIQUE: AP pelvis with lateral view of the left hip. COMPARISON: [facility], MR, PELVIS WITHOUT CONTRAST, 07/08/2013, 18:37. [facility], CR, SACROILIAC JOINTS 3 OR MORE VW, 07/17/2013, 9:17. FINDINGS: Bones: No fractures or dislocations. Pelvic ring appears intact. The hip joint spaces appear preserved. There is mild degeneration of the sacroiliac joints bilaterally. No suspicious bony lesions. Soft tissues: The visualized bowel gas pattern is normal. No suspicious soft tissue calcifications. IMPRESSION: 1. No fracture or dislocation. Dictated by: Raphael Delgado M.D. on 11/07/2018 at 21:06 Approved by: Raphael Delgado M.D. on 11/07/2018 at 21:07
[2018-11-07 20:45] LABS: Thyroid Stimulating Hormone 1.27 uIU/mL (0.47-4.68)
[2018-11-07] MEDS: PROPOFOL 200 MG/20 ML VIAL 60 MG IV (22:22)
--- NOTE | 2018-11-07 22:32 | PC.NURSE ---
Procedural sedation initiated at 2221 with timeout performed by Dr. Sunshine. Cardioversion indicated for a.fib/a.flutter. Pt's in the waiting room during procedure, brought back to room post-cardioversion. Pt tolerated propofol sedation and procedure well. Responded to 50J synchronized cardioversion and returned to NSR with rate in the 80's. Vital signs remained stable and airway patent throughout procedure and recovery.
--- NOTE | 2018-11-08 01:11 | RT ---
11/07/2018 [id number]. Assisted with conscious sedation for cardioversion, which was successful after one attempt. No sequelae or other issues noted.
--- NOTE | 2018-11-08 04:01 | ED_ITS ---
HPI - Arrhythmia/Palpitations General Chief Complaint: Arrhythmia/Palpitations Stated Complaint: Rapid A-Fib Time Seen by Provider: 11/07/18 19:43 Source: patient and family Mode of arrival: ambulatory Limitations: no limitations History of Present Illness HPI narrative: 58-year-old female nonsmoker with history of paroxysmal atrial fibrillation on Pradaxa presents with a chief complaint of palpitations, rapid heart rate and left anterior chest pain with radiation to her left arm over the past day or 2. She tends to not be very symptomatic with her AFib but at the request of her respiratory care program director checks her pulse is at least twice daily. She her home monitor noted to be in the 130s 140s but she did not believe its accuracy. About 1-2 weeks ago the patient had slipped and fallen on her left hip and it causes her pain with active range of motion. She denies any numbness, tingling or weakness. She denies any knee or ankle pain. She went to the walk-in clinic for evaluation of this left hip pain but during their evaluation they found her to be in a rapid atrial fibrillation at which point she was sent here MD complaint: rapid heart beat, palpitations and atrial fibrillation Duration: constant Severity: moderate Arrhythmia history: atrial fibrillation Associated symptoms: chest pain and shortness of breath Related Data Previous Rx's Medication Instructions Recorded betamethasone dipropionate 1 sam TOPICAL QDAY #30 gm 09/12/16 cyclobenzaprine 5 mg tablet 5 mg PO BEDTIME #20 tab 09/03/17 dabigatran etexilate 150 mg capsule 150 mg PO BID #60 cap 12/30/17 escitalopram 20 mg tablet 40 mg PO QDAY #180 tab 01/22/18 levothyroxine 0.088 mg PO QAM #90 tab 01/22/18 metoprolol tartrate 50 mg tablet 25 mg PO BID #90 tab 03/13/18 atorvastatin [Lipitor] 40 mg PO HS #90 tab 07/10/18 fluticasone propionate 0 INTRANASAL SEE INSTRUCTIONS #1 07/10/18 bot lamotrigine [Lamictal] 0 PO QDAY #90 tab 07/10/18 estradiol [Estrace] 1 gm VAGINAL QDAY #30 gm 09/22/18 alprazolam 0.5 mg tablet 0.5 mg PO SEE INSTRUCTIONS PRN #30 10/09/18 tab Allergies Allergy/AdvReac Type Severity Reaction Status Date / Time Sulfa (Sulfonamide Allergy Severe RASH, Verified 11/07/18 20:00 Antibiotics) ANAPHYLAXIS buspirone Allergy Intermediate HIVES Verified 11/07/18 20:00 cephalexin Allergy Intermediate HIVES Verified 11/07/18 20:00 fluoxetine Allergy Intermediate HIVES Verified 11/07/18 20:00 ketorolac Allergy Intermediate HIVES Verified 11/07/18 20:00 levofloxacin Allergy Intermediate EYE Verified 11/07/18 20:00 SWELLING metronidazole Allergy Intermediate HIVES Verified 11/07/18 20:00 nitrofurantoin Allergy Intermediate HIVES Verified 11/07/18 20:00 Quinolones Allergy Intermediate HIVES Verified 11/07/18 20:00 sertraline Allergy Intermediate HIVES Verified 11/07/18 20:00 tobramycin Allergy Intermediate HIVES Verified 11/07/18 20:00 adhesive Allergy Mild RASH Verified 11/07/18 20:00 ezetimibe Allergy Unknown Verified 11/07/18 20:00 gentamicin [Gentamicin] Allergy Unknown Verified 11/07/18 20:00 Penicillins Allergy Unknown Verified 11/07/18 20:00 simvastatin Allergy Unknown Verified 11/07/18 20:00 sulfamethoxazole Allergy Unknown Verified 11/07/18 20:00 [From Bactrim] trimethoprim [From Bactrim] Allergy Unknown Verified 11/07/18 20:00 epinephrine AdvReac Mild HEART Verified 11/07/18 20:00 RACING Review of Systems Constitutional Denies chills, Denies fever(s), Denies lethargy and Denies weakness Eyes Denies change in vision, Denies eye discharge, Denies irritation and Denies loss of vision ENT Ears, Nose, Mouth, and Throat: Denies change in voice, Denies neck pain and Denies sore throat Cardiovascular Reports chest pain, Reports irregular heart rhythm, Denies lightheadedness, Reports palpitations, Reports dyspnea, Denies dyspnea on exertion and Denies orthopnea Respiratory Denies cough, Reports dyspnea, Denies dyspnea on exertion and Denies wheezing Gastrointestinal Gastrointestinal: Denies abdominal pain, Denies change in bowel habits, Denies diarrhea, Denies nausea and Denies vomiting Genitourinary Denies hematuria, Denies flank pain, Denies urinary incontinence and Denies urinary urgency Musculoskeletal Reports limited range of motion and Denies neck pain Integumentary/Breasts Denies pruritus, Denies erythema, Denies rash and Denies wounds Neurologic Denies confusion, Denies loss of vision and Denies weakness Psychiatric Denies anxiety, Denies confusion, Denies depression, Denies homicidal ideation and Denies suicidal ideation Endocrine Reports palpitations Hematologic/Lymphatic Denies easy bruising Allergic/Immunologic Denies wheezing [facility] Medical History Asthma (Chronic) Cardiac arrhythmia (Chronic) Chronic back pain (Chronic) Depression (Chronic) Hayfever (Chronic) Hypothyroidism (Chronic) Chicken pox (Resolved) Mumps (Resolved) Surgical History Anesthesia (Resolved) History of gynecologic surgery (Resolved 07/2014) Status post appendectomy (Resolved ~1999) Family History Father Heart disease Hypertension Congestive heart failure Mother Hypertension High cholesterol Son Chronic mental illness Social History marital status: Smoking Status: Never smoker alcohol intake: never substance use type: does not use Family History Father Heart disease Hypertension Congestive heart failure Mother Hypertension High cholesterol Son Chronic mental illness Social History marital status: Smoking Status: Never smoker alcohol intake: never substance use type: does not use Exam Narrative Exam Narrative: GENERAL: 58-year-old female appears stated age, in obvious distress, obviously anxious HEAD: Atraumatic. Normocephalic. No temporal or scalp tenderness. EYES: Pupils equal round and reactive. Extraocular motions intact. No scleral icterus. No injection or drainage. ENT: Nose without bleeding, purulent drainage or septal hematoma. Throat without erythema, tonsillar hypertrophy or exudate. Uvula midline. Airway patent. NECK: Trachea midline. No JVD or lymphadenopathy. Supple, nontender, no meningeal signs. CARDIOVASCULAR: Tachycardic and irregular, no murmurs clicks rubs or gallops RESPIRATORY: Clear to auscultation. Breath sounds equal bilaterally. No wheezes, rales, or rhonchi. GASTROINTESTINAL: Abdomen soft, non-tender, nondistended. No hepato- splenomegaly, or palpable masses. No guarding. EXTREMITIES: No pain on palpation of left hip. Range of motion actively creates pain along the anterior aspect of the hip. No pain with passive range of motion or axial loading BACK: Nontender without deformity or crepitance. No flank tenderness. NEURO: AOx3. SKIN: No rash or erythema. Initial Vital Signs Initial Vital Signs: Vital Signs Temperature 99.5 F 11/07/18 19:48 Pulse Rate 141 H 11/07/18 19:48 Respiratory Rate 14 11/07/18 19:48 Blood Pressure 139/71 11/07/18 19:48 Pulse Oximetry 95 11/07/18 19:48 Procedures Cardioversion Consent Signed: Yes Indication: rapid atrial fib / atrial flutter Stability: Stable Number of attempts (shocks): 1 Joules used: 50 Cardiac rhythm post-cardioversion: NSR Procedural Sedation Patient Age: Patient is 5yrs or older Consent signed: Yes Time out performed: Yes Indication: cardioversion ASA Class: II Mallampati Airway Classification: Class II Preparation: environmental monitoring specialist applied, pulse oximeter, capnometry used, supplemental O2 applied, suction/airway equipment at bedside and IV secured IV Propofol dose (mg): 60 Intraservice time/total sedation time (min): 10 ED Sedation Level: Moderate (Concious) Patient Tolerated Procedure: Well Complications: none Course Orders Ordered: ED Orders 11/07/18 19:48 XR chest 1V Stat EKG-12 Lead Stat 11/07/18 19:52 Basic Metabolic Panel Stat Complete Blood Count AUTO DIFF Stat Magnesium Stat Thyroid Stimulating Hormone Stat Troponin & CK Cardiac Panel Stat 11/07/18 20:01 D Dimer Stat 11/07/18 20:35 XR hip w pel if done LT 2V Stat Discontinued Medications Diltiazem HCl (Cardizem) 10 mg IV NOW ONE Stop: 11/07/18 19:48 Last Admin: 11/07/18 20:16 Dose: 10 mg Sodium Chloride (Normal Saline 0.9%) 1,000 mls @ 150 mls/hr IV CONT RYLAN Last Infusion: 11/07/18 23:25 Dose: 0 mls/hr Admin: 11/07/18 20:17 Dose: 150 mls/hr Propofol (Diprivan) 60 mg IV NOW ONE Stop: 11/07/18 23:00 Last Admin: 11/07/18 22:22 Dose: 60 mg Vital Signs - 8 hr 11/07/18 20:16 11/07/18 20:30 11/07/18 20:45 Pulse Rate 137 H 133 H 124 H Respiratory Rate 18 Blood Pressure 128/74 Blood Pressure [Left Arm] Pulse Oximetry 95 11/07/18 21:00 11/07/18 21:45 11/07/18 22:08 Pulse Rate 123 H 116 H 119 H Respiratory Rate 16 18 Blood Pressure Blood Pressure [Left Arm] 135/86 135/73 Pulse Oximetry 95 96 99 11/07/18 22:25 11/07/18 22:30 11/07/18 22:35 Pulse Rate 85 83 84 Respiratory Rate 12 12 14 Blood Pressure Blood Pressure [Left Arm] 111/62 116/68 116/64 Pulse Oximetry 99 99 97 11/07/18 22:40 11/07/18 22:45 11/07/18 22:50 Pulse Rate 82 79 82 Respiratory Rate 12 14 16 Blood Pressure Blood Pressure [Left Arm] 116/70 118/63 115/66 Pulse Oximetry 98 97 98 11/07/18 22:55 11/07/18 23:30 Pulse Rate 79 83 Respiratory Rate 17 18 Blood Pressure 118/68 Blood Pressure [Left Arm] 116/68 Pulse Oximetry 97 97 MDM - Arrhythmia/Palpitations Lab Data Result diagrams: 11/07/18 19:52 11/07/18 19:52 Lab Results 11/07/18 11/07/18 11/07/18 Range/Units 19:52 19:52 19:52 WBC 5.7 (4.5-11.0) X10^3/uL RBC 3.96 L (4.0-5.2) X10^6/uL Hgb 12.1 (12.0-16.0) g/dL Hct 35.1 L (36-46) % MCV 88.5 (80-100) fL MCH 30.5 (26-34) PG MCHC 34.5 (30-36) % RDW 13.9 (11.6-14.8) % Plt Count 272 (150-400) X10^3/uL Neut % (Auto) 68.9 (50-75) % Lymph % (Auto) 14.3 L (25-40) % [place] % (Auto) 9.8 (3-14) % Eos % (Auto) 5.7 H (2-4) % Baso % (Auto) 1.3 (0-2) % Neut # (Auto) 3900 (6484-7028) /uL Lymph # (Auto) 800 L (5109-0188) /uL [place] # (Auto) 600 (0-900) /uL Eos # (Auto) 300 (0-450) /uL Baso # (Auto) 100 (0-100) /uL D-Dimer (<230) ng/mL Sodium 140 (137-145) mmol/L Potassium 3.8 (3.4-5.1) mmol/L Chloride 100 (98-107) mmol/L Carbon Dioxide 29 (22-32) mmol/L BUN 17 (7-17) mg/dL Creatinine 0.70 (0.52-1.04) mg/dL Estimated GFR > 60.0 (>60) mL/min BUN/Creatinine Ratio 24.3 H (6-22) Glucose 132 H (70-100) mg/dL Calcium 9.6 (8.4-10.2) mg/dL Magnesium 2.1 (1.6-2.3) mg/dL Total Creatine Kinase 36 (30-135) U/L CK-MB (CK-2) TNP CK-MB (CK-2) Rel Index TNP Troponin I < 0.012 (0.01-0.034) ng/mL TSH 1.27 (0.47-4.68) uIU/mL 11/07/18 Range/Units 20:01 WBC (4.5-11.0) X10^3/uL RBC (4.0-5.2) X10^6/uL Hgb (12.0-16.0) g/dL Hct (36-46) % MCV (80-100) fL MCH (26-34) PG MCHC (30-36) % RDW (11.6-14.8) % Plt Count (150-400) X10^3/uL Neut % (Auto) (50-75) % Lymph % (Auto) (25-40) % [place] % (Auto) (3-14) % Eos % (Auto) (2-4) % Baso % (Auto) (0-2) % Neut # (Auto) (2909-2542) /uL Lymph # (Auto) (2543-3354) /uL [place] # (Auto) (0-900) /uL Eos # (Auto) (0-450) /uL Baso # (Auto) (0-100) /uL D-Dimer 306 H (<230) ng/mL Sodium (137-145) mmol/L Potassium (3.4-5.1) mmol/L Chloride (98-107) mmol/L Carbon Dioxide (22-32) mmol/L BUN (7-17) mg/dL Creatinine (0.52-1.04) mg/dL Estimated GFR (>60) mL/min BUN/Creatinine Ratio (6-22) Glucose (70-100) mg/dL Calcium (8.4-10.2) mg/dL Magnesium (1.6-2.3) mg/dL Total Creatine Kinase (30-135) U/L CK-MB (CK-2) CK-MB (CK-2) Rel Index Troponin I (0.01-0.034) ng/mL TSH (0.47-4.68) uIU/mL Point of Care Testing Test Results Not applicable Imaging Data Pelvis / Hip: Radiologist's impression: Thalia Maoboris Virgen 58 F 1960 [place] [address] XRay Report Signed Patient: Paulette Mao TMR#: [id number] : 1960Acct:[id number] Age/Sex: 58 / FDate of Service: 11/07/18 Loc: ED Accession Number: [id number] Procedure: XR hip w pel if done LT 2V Ordering Provider: Price Sunshine D.O. PROCEDURE: XR HIP W PEL IF DONE LT 2V INDICATIONS: fall with hip pain TECHNIQUE: AP pelvis with lateral view of the left hip. COMPARISON: [facility], MR, PELVIS WITHOUT CONTRAST, 07/08/2013, 18:37. [facility], CR, SACROILIAC JOINTS 3 OR MORE VW, 07/17/2013, 9:17. FINDINGS: Bones: No fractures or dislocations. Pelvic ring appears intact. The hip joint spaces appear preserved. There is mild degeneration of the sacroiliac joints bilaterally. No suspicious bony lesions. Soft tissues: The visualized bowel gas pattern is normal. No suspicious soft tissue calcifications. IMPRESSION: 1. No fracture or dislocation. Dictated by: Raphael Delgado M.D. on 11/07/2018 at 21:06 Chest x-ray: Radiologist's impression: PROCEDURE: XR CHEST 1V INDICATIONS: chest pain, tachy TECHNIQUE: One view of the chest was acquired. COMPARISON: [facility], RG, XR CXR 1 VIEW, 01/16/2005, 10:52. [facility], CR, XR CHEST 1V, 11/16/2017, 9:15. FINDINGS: Surgical changes and devices: None. Lungs and pleura: No acute consolidation. There is a round nodular opacity projecting over the right upper lung zone measuring up to 7 mm. No pleural effusions or pneumothorax. Mediastinum: Mediastinal contours appear normal. Heart size is normal. Bones and chest wall: No suspicious bony lesions. Overlying soft tissues appear unremarkable. IMPRESSION: 1. No acute consolidation. 2. Nodular opacity of the right upper lung zone is new compared to the prior studies. The findings are suspicious for a pulmonary nodule due to infection/inflammation versus neoplasm. Further evaluation is recommended with chest CT if clinically indicated. Dictated by: Raphael Delgado M.D. on 11/07/2018 at 21:03 Discharge Plan Departure Patient Disposition: Home Clinical Impression: Atrial fibrillation Qualifiers: Atrial fibrillation type: paroxysmal Qualified Code(s): I48.0 - Paroxysmal atrial fibrillation Discharge Date/Time: 11/07/18 23:30 Interventions: ED Discharge Assessment Last Done: 11/07/18 23:30 Instructions: DI for Atrial Fibrillation Activity Restrictions/Additional Instructions: *You have been diagnosed with [rapid atrial fibrillation, resolved with electrocardioversion] *What to do: *Take medications as directed *Follow up with your primary care provider in 2-3 days, call for an appointment. Let them know you were seen in the Emergency Department and that we ask that you be seen in follow up *Return to ER if you should have any new, worsening or concerning symptoms *Your chest Xray shows a small spot which will need to be followed by your PCP with a repeat Xray or more advanced imaging such as a CT Prescriptions: No Action betamethasone dipropionate 0.05 % cream 1 sam Topical QDAY Qty: 30 RF: 0 dabigatran etexilate [Pradaxa] 150 mg capsule 150 mg PO BID Qty: 60 RF: 11 levothyroxine 88 mcg tablet 0.088 mg PO QAM Qty: 90 RF: 3 escitalopram oxalate 20 mg tablet 40 mg PO QDAY Qty: 180 RF: 3 metoprolol tartrate 50 mg tablet 25 mg PO BID Qty: 90 RF: 3 atorvastatin [Lipitor] 40 mg tablet 40 mg PO HS Qty: 90 RF: 1 fluticasone propionate 50 mcg/actuation spray,suspension Intranasal SEE INSTRUCTIONS Qty: 1 RF: 2 lamotrigine [Lamictal] 200 mg tablet PO QDAY Qty: 90 RF: 1 estradiol [Estrace] 0.01 % (0.1 mg/gram) cream 1 gm Vaginal QDAY Qty: 30 RF: 3 alprazolam 0.5 mg tablet 0.5 mg PO SEE INSTRUCTIONS PRN (Reason: anxiety) Qty: 30 RF: 0 cyclobenzaprine 5 mg tablet 5 mg PO BEDTIME Qty: 20 RF: 0 Referrals: Angel Love MD [Primary Care Provider] - Boyd Arredondo MD [Physician] -
== END 2018-11-07 23:30 | disposition home or self-care (01) ==
PROVIDERS: Emergency Provider Emergency Medicine; PCP Family Medicine
DX: I48.0 Paroxysmal atrial fibrillation (principal); M25.552 Pain in left hip; W19.XXXA Unspecified fall, initial encounter; Z79.02 Long term (current) use of antithrombotics/antiplatelets
CPT/HCPCS: 71045; 73502; 80048; 82550; 83735; 84443; 84484; 85025; 85379; 92960; 93005; 96361; 96374; 96375; 99285; 99291; 99292; J2704

== ENCOUNTER 2018-11-08 16:07 | Emergency (ER) | payer OTHER, SELFPAY ==
[2018-11-08 16:10] VITALS: BP 135/80; PULSE 133; RESP 20; TEMP 36.8; O2SAT 94; BMI 33.0
--- NOTE | 2018-11-08 16:18 | DI.RAD.S_ITS ---
PROCEDURE: XR CHEST 1V INDICATIONS: chest pain TECHNIQUE: One view of the chest was acquired. COMPARISON: None. FINDINGS: Surgical changes and devices: None. Lungs and pleura: Lungs are clear. No pleural effusions or pneumothorax. Mediastinum: Mediastinal contours appear normal. Heart size is normal. Bones and chest wall: No suspicious bony lesions. Overlying soft tissues appear unremarkable. IMPRESSION: No acute cardiopulmonary findings. Dictated by: Rosalva Maloney M.D. on 11/08/2018 at 15:41 Approved by: Rosalva Maloney M.D. on 11/08/2018 at 15:42
[2018-11-08 16:33] LABS: Add Manual Diff / Slide Review NO; Basophils Absolute Auto 0 /uL (0-100); Basophils Percent Auto 0.3 % (0-2); Eosinophils Absolute Auto 300 /uL (0-450); Eosinophils Percent Auto 6.8 % (2-4); Hematocrit 35.3 % (36-46); Hemoglobin 11.8 g/dL (12.0-16.0); Lymphocytes Absolute Auto 900 /uL (1100-4500); Lymphocytes Percent Auto 19.2 % (25-40); Mean Corpuscular HGB Conc 33.4 % (30-36); Mean Corpuscular Hemoglobin 29.8 PG (26-34); Mean Corpuscular Volume 89.4 fL (80-100); Monocytes Absolute Auto 500 /uL (0-900); Monocytes Percent Auto 10.8 % (3-14); Neutrophils Absolute Auto 3000 /uL (1500-7000); Neutrophils Percent Auto 62.9 % (50-75); Platelet Count 267 X10^3/uL (150-400); Red Blood Cell Count 3.95 X10^6/uL (4.0-5.2); Red Cell Distribution Width 14.1 % (11.6-14.8); White Blood Cell Count 4.7 X10^3/uL (4.5-11.0)
[2018-11-08 16:36] LABS: INR 1.3 (0.9-1.3); Prothrombin Time 15.3 SECONDS (10.1-12.7)
[2018-11-08 16:39] LABS: PTT Partial Thromboplastin Tim 49 SECONDS (26.4-36.2)
[2018-11-08 16:41] LABS: Alanine Aminotransferase 28 IU/L (9-52); Albumin 4.3 g/dL (3.5-5.0); Albumin Globulin Ratio 1.4 (1.0-2.8); Alkaline Phosphatase 127 U/L (38-126); Aspartate Aminotransferase 40 IU/L (14-36); Bilirubin Total 0.6 mg/dL (0.2-1.3); Blood Urea Nitrogen 14 mg/dL (7-17); Calcium 9.6 mg/dL (8.4-10.2); Carbon Dioxide 31 mmol/L (22-32); Chloride 102 mmol/L (98-107); Creatine Kinase 31 U/L (30-135); Estimated Glomerular Filt Rate > 60.0 mL/min (>60); Glucose 101 mg/dL (70-100); HEMOLYSIS < 15 (0-50); Lipase 124 U/L (23-300); Sodium 143 mmol/L (137-145); Total Protein 7.3 g/dL (6.3-8.2)
[2018-11-08] MEDS: PROPOFOL 200 MG/20 ML VIAL 60 MG IV (16:45)
[2018-11-08 16:52] LABS: Troponin I < 0.012 ng/mL (0.01-0.034)
--- NOTE | 2018-11-08 16:52 | ED.ARRPALP ---
HPI - Arrhythmia/Palpitations General Chief Complaint: Arrhythmia/Palpitations Stated Complaint: elevated heart rate today Time Seen by Provider: 11/08/18 16:24 Source: patient Mode of arrival: ambulatory Limitations: no limitations History of Present Illness HPI narrative: Patient is a 58-year-old female with history of atrial fibrillation on Pradaxa and metoprolol presenting with AFib with RVR. She was actually seen evaluated here last evening at around 7 30 for the same. At that time she was cardioverted and given a dose of diltiazem. The today she said that she was taking a nap it woke her from her sleep and she came to the emergency department. She feels a fluttering in her chest. She denies shortness of breath or dizziness. MD complaint: rapid heart beat and heart racing Duration: constant Context: occurred during rest Arrhythmia history: atrial fibrillation Related Data Previous Rx's Medication Instructions Recorded betamethasone dipropionate 1 sam TOPICAL QDAY #30 gm 09/12/16 cyclobenzaprine 5 mg tablet 5 mg PO BEDTIME #20 tab 09/03/17 dabigatran etexilate 150 mg capsule 150 mg PO BID #60 cap 12/30/17 escitalopram 20 mg tablet 40 mg PO QDAY #180 tab 01/22/18 levothyroxine 0.088 mg PO QAM #90 tab 01/22/18 metoprolol tartrate 50 mg tablet 25 mg PO BID #90 tab 03/13/18 atorvastatin [Lipitor] 40 mg PO HS #90 tab 07/10/18 fluticasone propionate 0 INTRANASAL SEE INSTRUCTIONS #1 07/10/18 bot lamotrigine [Lamictal] 0 PO QDAY #90 tab 07/10/18 estradiol [Estrace] 1 gm VAGINAL QDAY #30 gm 09/22/18 alprazolam 0.5 mg tablet 0.5 mg PO SEE INSTRUCTIONS PRN #30 10/09/18 tab flecainide 50 mg PO Q12H #14 tab 11/08/18 Allergies Allergy/AdvReac Type Severity Reaction Status Date / Time Sulfa (Sulfonamide Allergy Severe RASH, Verified 11/08/18 16:15 Antibiotics) ANAPHYLAXIS buspirone Allergy Intermediate HIVES Verified 11/08/18 16:15 cephalexin Allergy Intermediate HIVES Verified 11/08/18 16:15 fluoxetine Allergy Intermediate HIVES Verified 11/08/18 16:15 ketorolac Allergy Intermediate HIVES Verified 11/08/18 16:15 levofloxacin Allergy Intermediate EYE Verified 11/08/18 16:15 SWELLING metronidazole Allergy Intermediate HIVES Verified 11/08/18 16:15 nitrofurantoin Allergy Intermediate HIVES Verified 11/08/18 16:15 Quinolones Allergy Intermediate HIVES Verified 11/08/18 16:15 sertraline Allergy Intermediate HIVES Verified 11/08/18 16:15 tobramycin Allergy Intermediate HIVES Verified 11/08/18 16:15 adhesive Allergy Mild RASH Verified 11/08/18 16:15 ezetimibe Allergy Unknown Verified 11/08/18 16:15 gentamicin [Gentamicin] Allergy Unknown Verified 11/08/18 16:15 Penicillins Allergy Unknown Verified 11/08/18 16:15 simvastatin Allergy Unknown Verified 11/08/18 16:15 sulfamethoxazole Allergy Unknown Verified 11/08/18 16:15 [From Bactrim] trimethoprim [From Bactrim] Allergy Unknown Verified 11/08/18 16:15 epinephrine AdvReac Mild HEART Verified 11/08/18 16:15 RACING Review of Systems Review of Systems ROS Unobtainable: All systems reviewed & are unremarkable except as noted in HPI and below Constitutional Denies chills, Denies fever(s), Denies lethargy and Denies weakness Eyes Denies change in vision, Denies eye discharge, Denies irritation and Denies loss of vision ENT Ears, Nose, Mouth, and Throat: Denies change in voice, Denies neck pain and Denies sore throat Cardiovascular Reports as per HPI, Denies dyspnea and Denies dyspnea on exertion Respiratory Denies cough, Denies dyspnea, Denies dyspnea on exertion and Denies wheezing Gastrointestinal Gastrointestinal: Denies abdominal pain, Denies change in bowel habits, Denies diarrhea, Denies nausea and Denies vomiting Genitourinary Denies hematuria, Denies flank pain, Denies urinary incontinence and Denies urinary urgency Musculoskeletal Denies neck pain Integumentary/Breasts Denies pruritus, Denies erythema, Denies rash and Denies wounds Neurologic Denies loss of vision and Denies weakness Allergic/Immunologic Denies wheezing PFSH Social History marital status: Smoking Status: Never smoker alcohol intake: never substance use type: does not use Exam Initial Vital Signs Initial Vital Signs: Vital Signs Temperature 98.2 F 11/08/18 16:10 Pulse Rate 133 H 11/08/18 16:10 Respiratory Rate 20 11/08/18 16:10 Blood Pressure 135/80 11/08/18 16:10 Pulse Oximetry 94 11/08/18 16:10 GENERAL: Well-appearing, well-nourished and in no acute distress. HEENT: Head atraumatic,EOMI, pupils reactive, face symmetric, CARDIOVASCULAR: Irregularly irregular tachycardic RESPIRATORY: Breath sounds equal bilaterally, no wheezes rales or rhonchi. ABDOMEN: Soft, nontender. Normoactive bowel sounds all 4 quadrants. No guarding or rebound. EXTREMITIES: Normal range of motion, no clubbing or edema. Neurovascularly intact NEUROLOGICAL: Alert and oriented x4.Normal gait and speech. Cranial nerves II through XII grossly intact. SKIN: Warm, dry, no laceration, no petechiae, no rashes or lesions. Procedures Cardioversion Consent Signed: Yes Indication: AFib with RVR Cardiac rhythm prior to cardioversion: Atrial fibrillation with RVR Stability: Stable Number of attempts (shocks): 1 Joules used: 150 Cardiac rhythm post-cardioversion: Normal sinus rhythm Procedural Sedation Patient Age: Patient is 5yrs or older Consent signed: Yes Time out performed: Yes Indication: cardioversion ASA Class: I Mallampati Airway Classification: Class I Time of Last PO Intake: 16:30 Preparation: quality assurance monitor chassis applied, pulse oximeter, capnometry used and supplemental O2 applied IV Propofol dose (mg): 60 ED Sedation Level: Moderate (Concious) Patient Tolerated Procedure: Well Complications: hypoxia Interventions: Assist by BVM Course Orders Ordered: ED Orders 11/08/18 16:18 XR chest 1V Stat EKG-12 Lead Stat 11/08/18 16:20 Complete Blood Count AUTO DIFF Stat Comprehensive Metabolic Panel Stat Lipase Stat Partial Thromboplastin Time Stat Prothrombin Time INR Stat Troponin & CK Cardiac Panel Stat 11/08/18 17:56 EKG-12 Lead Routine 11/08/18 18:07 Consult to Respiratory Therapy Evaluate & Treat Discontinued Medications Diltiazem HCl (Cardizem) 10 mg IV NOW ONE Stop: 11/08/18 16:40 Last Admin: 11/08/18 17:07 Dose: 10 mg Flecainide Acetate (Tambocor) 50 mg PO NOW ONE Stop: 11/08/18 17:43 Last Admin: 11/08/18 18:26 Dose: 50 mg Propofol (Diprivan) 60 mg IV NOW ONE Stop: 11/08/18 17:35 Consultations Consultation #1: Dr. Georges, on-call cardiology has been updated patient's symptoms and test results. He is reviewed patient's chart from there and. It looks as though her metoprolol was decreased to 12.5 mg twice a day could she was not tolerating it and feeling unwell. He recommended flecainide 50 mg every 12 hours. He said there are 2 options 1 cardiovert and start flecainide in the emergency department or to give 300 mg of flecainide watch for few hours and wait for cardioversion if she does not cardiovert manual need to electrically cardiovert and start flecainide. Time: : Vital Signs - 8 hr 11/08/18 16:10 11/08/18 17:00 11/08/18 17:23 Temperature 98.2 F Pulse Rate 133 H 90 96 H Respiratory Rate 20 16 20 Blood Pressure 135/80 Blood Pressure [Left Arm] 124/75 115/67 Pulse Oximetry 94 94 94 11/08/18 17:59 11/08/18 18:04 Temperature Pulse Rate 133 H 64 Respiratory Rate 16 14 Blood Pressure Blood Pressure [Left Arm] 94/57 L Pulse Oximetry 99 MDM - Arrhythmia/Palpitations Lab Data Attestation: I reviewed the patient's lab results. Result diagrams: 11/08/18 16:20 11/08/18 16:20 Lab Results 11/08/18 11/08/18 11/08/18 Range/Units 16:20 16:20 16:20 WBC 4.7 (4.5-11.0) X10^3/uL RBC 3.95 L (4.0-5.2) X10^6/uL Hgb 11.8 L (12.0-16.0) g/dL Hct 35.3 L (36-46) % MCV 89.4 (80-100) fL MCH 29.8 (26-34) PG MCHC 33.4 (30-36) % RDW 14.1 (11.6-14.8) % Plt Count 267 (150-400) X10^3/uL Neut % (Auto) 62.9 (50-75) % Lymph % (Auto) 19.2 L (25-40) % [facility] % (Auto) 10.8 (3-14) % Eos % (Auto) 6.8 H (2-4) % Baso % (Auto) 0.3 (0-2) % Neut # (Auto) 3000 (0888-2592) /uL Lymph # (Auto) 900 L (0450-0174) /uL [facility] # (Auto) 500 (0-900) /uL Eos # (Auto) 300 (0-450) /uL Baso # (Auto) 0 (0-100) /uL PT 15.3 H (10.1-12.7) SECONDS INR 1.3 (0.9-1.3) APTT 49 H D (26.4-36.2) SECONDS Sodium 143 (137-145) mmol/L Potassium 4.0 (3.4-5.1) mmol/L Chloride 102 (98-107) mmol/L Carbon Dioxide 31 (22-32) mmol/L BUN 14 (7-17) mg/dL Creatinine 0.70 (0.52-1.04) mg/dL Estimated GFR > 60.0 (>60) mL/min BUN/Creatinine Ratio 20.0 (6-22) Glucose 101 H (70-100) mg/dL Calcium 9.6 (8.4-10.2) mg/dL Total Bilirubin 0.6 (0.2-1.3) mg/dL AST 40 H (14-36) IU/L ALT 28 (9-52) IU/L Alkaline Phosphatase 127 H (38-126) U/L Total Creatine Kinase 31 (30-135) U/L CK-MB (CK-2) TNP CK-MB (CK-2) Rel Index TNP Troponin I < 0.012 (0.01-0.034) ng/mL Total Protein 7.3 (6.3-8.2) g/dL Albumin 4.3 (3.5-5.0) g/dL Globulin 3.0 (1.7-4.1) g/dL Albumin/Globulin Ratio 1.4 (1.0-2.8) Lipase 124 (23-300) U/L Point of Care Testing Test Results Not applicable Imaging Data Chest x-ray: Radiologist's impression: PROCEDURE: XR CHEST 1V INDICATIONS: chest pain TECHNIQUE: One view of the chest was acquired. COMPARISON: None. FINDINGS: Surgical changes and devices: None. Lungs and pleura: Lungs are clear. No pleural effusions or pneumothorax. Mediastinum: Mediastinal contours appear normal. Heart size is normal. Bones and chest wall: No suspicious bony lesions. Overlying soft tissues appear unremarkable. IMPRESSION: No acute cardiopulmonary findings. Dictated by: Rosalva Maloney M.D. on 11/08/2018 at 15:41 ECG Data Attestation: I personally reviewed and interpreted this ECG as follows: Prior ECG tracings: available for review Interpretation: EKG 1. Atrial fibrillation rate [address] changes similar prior EKG EKG 2. Normal sinus rhythm rate [address] changes no T-wave inversions similar to previous EKG MDM Narrative Medical decision making narrative: Id patient her options in regards to cardioversion. She chose for electric cardioversion and starting on flecainide. She. Metoprolol continue flecainide every 12 hours and follow up with Cardiology next week. Discharge Plan Departure Patient Disposition: Home Clinical Impression: Atrial fibrillation Qualifiers: Atrial fibrillation type: paroxysmal Qualified Code(s): I48.0 - Paroxysmal atrial fibrillation Instructions: DI for Atrial Fibrillation Activity Restrictions/Additional Instructions: *You have been diagnosed with atrial fibrillation *What to do: Hopefully with flecainide you will not go back into atrial fibrillation *Continue to take medications as directed STOP TAKING METOPROLOL Flecainide 50 mg every 12 hours--> sent to [facility] [place] *Follow up with your primary care provider in 2-3 days, and follow up with her Cardiology, they should call you on Saturday few not hear from them on Saturday please call the office and schedule an appointment *Return to ER if you should have increasing chest pain heart palpitations fluttering passing out or any new, worsening or concerning symptoms Prescriptions: New flecainide 50 mg tablet 50 mg PO Q12H Qty: 14 RF: 0 No Action betamethasone dipropionate 0.05 % cream 1 sam Topical QDAY Qty: 30 RF: 0 dabigatran etexilate [Pradaxa] 150 mg capsule 150 mg PO BID Qty: 60 RF: 11 levothyroxine 88 mcg tablet 0.088 mg PO QAM Qty: 90 RF: 3 escitalopram oxalate 20 mg tablet 40 mg PO QDAY Qty: 180 RF: 3 metoprolol tartrate 50 mg tablet 25 mg PO BID Qty: 90 RF: 3 atorvastatin [Lipitor] 40 mg tablet 40 mg PO HS Qty: 90 RF: 1 fluticasone propionate 50 mcg/actuation spray,suspension Intranasal SEE INSTRUCTIONS Qty: 1 RF: 2 lamotrigine [Lamictal] 200 mg tablet PO QDAY Qty: 90 RF: 1 estradiol [Estrace] 0.01 % (0.1 mg/gram) cream 1 gm Vaginal QDAY Qty: 30 RF: 3 alprazolam 0.5 mg tablet 0.5 mg PO SEE INSTRUCTIONS PRN (Reason: anxiety) Qty: 30 RF: 0 cyclobenzaprine 5 mg tablet 5 mg PO BEDTIME Qty: 20 RF: 0 Referrals: Angel Love MD [Primary Care Provider] -
[2018-11-08 17:00] VITALS: BP 124/75; PULSE 90; RESP 16; O2SAT 94
[2018-11-08] MEDS: dilTIAZem 5 MG/ML SDV 10 MG IV (17:07)
[2018-11-08 17:23] VITALS: BP 115/67; PULSE 96; RESP 20; O2SAT 94
[2018-11-08 17:59] VITALS: PULSE 133; RESP 16; O2SAT 100
[2018-11-08 18:04] VITALS: BP 94/57; PULSE 64; RESP 14; O2SAT 99
[2018-11-08] MEDS: FLECAINIDE 100 MG TABLET 50 MG PO (18:26)
[2018-11-08 19:13] VITALS: BP 104/74; PULSE 64; RESP 12; O2SAT 97
== END 2018-11-08 19:15 | disposition home or self-care (01) ==
PROVIDERS: Emergency Provider Emergency Medicine; PCP Family Medicine
DX: I48.91 Unspecified atrial fibrillation (principal); Z79.02 Long term (current) use of antithrombotics/antiplatelets
CPT/HCPCS: 36591; 71045; 80053; 82550; 83690; 84484; 85025; 85610; 85730; 92960; 93005; 93041; 94770; 96374; 99152; 99283; 99291; J2704

== ENCOUNTER → 2018-12-17 12:42 | Outpatient (CLI) | payer OTHER, SELFPAY ==
--- NOTE | 2018-12-17 12:44 | DI.RAD.S_ITS ---
PROCEDURE: XR LUMBAR SPINE 2-3V INDICATIONS: acute lower back pain TECHNIQUE: A 3 views of the lumbar spine were acquired. COMPARISON: [facility], [facility], XR LUMBAR SPINE 2-3V, 09/03/2017, 9:36. [facility], CR, L-SPINE 2-3 VIEWS, 06/26/2013, 9:56. FINDINGS: Bones: 5 [id number] vertebrae are present. There is normal bony alignment except for patient tilt leftward. No vertebral body compression fractures. No suspicious bony lesions. There has been progression of degenerative disc disease at L5-S1 from 2013 through 2017 to the current study showing sequential reduction of disc height at L5-S1. Facet osteoarthritis as progressed in that area also, but to a lesser degree. Soft tissues: Overlying bowel gas pattern is normal. No suspicious soft tissue calcifications. IMPRESSION: Sequential interval worsening of degenerative disc disease and facet osteoarthritis at L5-S1 now moderately severe. No compression fracture found, no subluxation identified. Dictated by: Hero Lassiter M.D. on 12/17/2018 at 14:03 Approved by: Hero Lassiter M.D. on 12/17/2018 at 14:04
== END ==
PROVIDERS: Family Provider Internal Medicine Cardiovascular Disease; PCP Family Medicine; Visit Provider Family Medicine
DX: M54.5 Low back pain (principal); M51.37 Other intervertebral disc degeneration, lumbosacral region; M47.817 Spondylosis without myelopathy or radiculopathy, lumbosacral region
CPT/HCPCS: 72100